=== PATIENT | female | born 1965 | race Caucasian/White ===

== ENCOUNTER 2018-01-30 04:49 | Emergency (ER) | payer OTHER ==
[2018-01-30 05:08] VITALS: TEMP 98.2; BMI 33.0
--- NOTE | 2018-01-30 05:23 | PDOC ---
History of Present Illness - General Chief Complaint: Wound Stated Complaint: RECTAL PROBLEM Time Seen by Provider: 01/30/18 05:18 History Source: Patient - History of Present Illness Initial Comments: 01/30/18 05:30 52-year-old female with history of skin abscesses complaining of right inner buttocks abscess status post I&D by yesterday. Patient was started on Augmentin and has taken 2 by mouth doses. Patient reports worsening of redness to the right buttocks and pain. Patient has a past medical history of lupus Past History - Past Medical History Allergies/Adverse Reactions: Allergies Allergy/AdvReac Type Severity Reaction Status Date / Time Sulfa (Sulfonamide Allergy Verified 01/30/18 05:06 Antibiotics) Home Medications: Ambulatory Orders Clindamycin HCl 300 mg PO TID #30 capsule 01/30/18 Escitalopram Oxalate [Lexapro -] 10 mg PO DAILY 01/30/18 - Immunization History Immunization Up to Date: No - Suicide/Smoking/Psychosocial Hx Smoking History: Current every day smoker Number of Cigarettes Smoked Daily: 18 Information on smoking cessation initiated: Yes Hx Alcohol Use: No Drug/Substance Use Hx: No Review of Systems - Review of Systems Able to Perform ROS?: Yes Is the patient limited Bermudian proficient: No Constitutional: No: Symptoms Reported, See HPI, Chills, Diaphoresis, Fever, Loss of Appetite, Malaise, Night Sweats, Weakness, Weight Stable, Unintentional Wgt. Loss, Unexplained wgt Loss, Other Integumentary: Yes: Erythema, Other (skin abscesse) *Physical Exam - Vital Signs Last Vital Signs Temp Pulse Resp BP Pulse Ox 98.2 F 134 H 14 113/86 98 01/30/18 05:06 01/30/18 05:06 01/30/18 05:06 01/30/18 05:06 01/30/18 05:06 - Physical Exam General Appearance: Yes: Appropriately Dressed Cardiovascular: positive: Regular Rhythm, Tachycardia Female Pelvic Exam: positive: other (right buttocks erythema, warm to touch and tenderness. pus drainage at I&D site) Integumentary: positive: Normal Color, Dry, Warm Neurologic: positive: Fully Oriented, Alert, Normal Mood/Affect ED Treatment Course - LABORATORY CBC & Chemistry Diagram: 01/30/18 05:47 01/30/18 05:47 Progress Note - Progress Note Progress Note: cellulitis and abscess P: cbc cmp blood culture ua Medical Decision Making - Medical Decision Making 01/30/18 07:06 patient pending IV clindamycin. patient signed out to salud Gonzalez NP *DC/Admit/Observation/Transfer Diagnosis at time of Disposition: Cellulitis and abscess of buttock - Prescriptions Prescriptions: Clindamycin HCl 300 mg PO TID #30 capsule - Referrals Referrals: Evelio Nielsen MD [Primary Care Provider] - - Patient Instructions Printed Discharge Instructions: DI for Cellulitis -- Adult Additional Instructions: take clindamycin as prescribed. apply warm compress to the area. return in 2 days for packing removal . ' return to the ER if you are having fever, worsening symptoms, streaking. - Post Discharge Activity
[2018-01-30] MEDS ORDERED: KETOROLAC TROMETHAMINE 30 MG/1 ML VIAL IVPUSH ONE (05:37)
[2018-01-30] MEDS ORDERED: morphine CARPU-JECT 2 MG/1 ML DISP.SYRIN IVPUSH ONE (05:38)
[2018-01-30] MEDS ORDERED: morphine SULFATE 4 MG/ML VIAL ONE ×2 (05:39→06:08)
[2018-01-30] MEDS ORDERED: KETOROLAC TROMETHAMINE 30 MG/1 ML VIAL ONE (05:40)
[2018-01-30 05:58] LABS: BASO % 0.7 % (0-2.0); EOS % 0.5 % (0-4.5); HEMOGLOBIN 12.7 GM/dL (10.7-15.3); LYMPH % 19.2 % (8-40); MCHC 34.4 g/dl (32.0-36.0); MEAN CELL VOLUME 87.3 fl (80-96); MEAN PLT VOLUME 8.8 fl (7.5-11.1); MONO % 7.3 % (3.8-10.2); NEUT % 72.3 % (42.8-82.8); PLATELET COUNT 219 K/MM3 (134-434); RBC 4.24 M/mm3 (3.60-5.2); RDW 13.1 % (11.6-15.6); WHITE BLOOD COUNT 11.3 K/mm3 (4.0-10.0)
[2018-01-30] MEDS ORDERED: morphine CARPU-JECT 4 MG/1 ML DISP.SYRIN IVPUSH ONE (06:05)
[2018-01-30 06:27] LABS: ALBUMIN 3.5 g/dl (3.4-5.0); ALK PHOS 87 U/L (45-117); ANION GAP 8 (8-16); BILIRUBIN,TOTAL 0.4 mg/dL (0.2-1.0); BLOOD UREA NITROGEN 13 mg/dL (7-18); CALCIUM 7.7 mg/dL (8.5-10.1); CHLORIDE 109 mmol/L (98-107); CO2 22 mmol/L (21-32); CREATININE 0.6 mg/dL (0.55-1.02); GLUCOSE,RANDOM 113 mg/dL (74-106); POTASSIUM 3.9 mmol/L (3.5-5.1); SGOT/AST 17 U/L (15-37); SGPT/ALT 20 U/L (12-78); SODIUM 139 mmol/L (136-145); TOT PROT 6.7 g/dl (6.4-8.2)
[2018-01-30] MEDS ORDERED: CLINDAMYCIN 900 MG PREMIX IVPB 900 MG/50 ML BAG IVPB ONE ×2 (07:00→07:03)
[2018-01-30 07:26] VITALS: BP 100/60; PULSE 60
== END 2018-01-30 07:12 | disposition home or self-care (01) ==
LOC: JER 04:49
DX: L03.317 Cellulitis of buttock (principal)
CPT/HCPCS: 36415; 80053; 85025; 87040; 99282-25

== ENCOUNTER 2018-01-30 20:10 | Emergency (ER) | payer OTHER ==
--- NOTE | 2018-01-30 20:20 | PDOC ---
Rapid Medical Evaluation Chief Complaint: Wound Time Seen by Provider: 01/30/18 20:20 Medical Evaluation: Allergies Allergy/AdvReac Type Severity Reaction Status Date / Time Sulfa (Sulfonamide Allergy Verified 01/30/18 05:06 Antibiotics) 01/30/18 20:20 This is a 52 year old female seen this morning with buttock abscess, I&D. Presents tonight after packing fell out, however also reports that surrounding redness is spreading. V/s notable for P 98. -To FT for further evaluation.
[2018-01-30 20:27] VITALS: BP 110/69; PULSE 98; TEMP 98.1; BMI 33.0
--- NOTE | 2018-01-30 21:07 | PDOC ---
Suture Removal/Wound Check HPI - History of Present Illness Chief Complaint: Wound Stated Complaint: CYST Time Seen by Provider: 01/30/18 20:20 History Source: Yes: Patient Exam Limitations: Yes: No Limitations Treated at: [facility] ED Date of Last ED visit: 01/30/18 - Onset of Previous Treatment Comment:: CHIEF COMPLAINT: 52 y/o afebrile female with no significant PMH c/o worsened buttock wound. HISTORY OF PRESENT ILLNESS: The patient was seen here this morning for an abscess. She had it drained and was given 1 dose of IV clinda. She was discharged with packing in place and sent with rx for clinda. She has taken 2 doses of PO clinda so far. She states when she removed bandaging this evening to do a hot compress the packing came out and she noticed the redness had worsened. She denies fever, chills, streaking and all other symptoms. Vital signs on arrival are within normal limits. REVIEW OF SYSTEMS: GENERAL/CONSTITUTIONAL: No fever/chills. No weakness. No weight change. MUSCULOSKELETAL: No joint or muscle swelling or pain. No neck or back pain. SKIN: +painful buttock wound left side. NEUROLOGIC: No headache, vertigo, loss of consciousness, or loss of sensation. PHYSICAL EXAM: GENERAL: The patient is awake, alert, and fully oriented, in no acute distress. She is very well appearing and pleasant. HEAD: Normal with no signs of trauma. EYES: Pupils equal, round and reactive to light, extraocular movements intact, sclera anicteric, conjunctiva clear. EXTREMITIES: Normal range of motion, no edema. NEUROLOGICAL: Normal speech, normal gait. SKIN: Left buttock with 14cm x 11cm area of erythema with small open incision noted at left border of the intergluteal cleft. Another area of fluctuance that is TTP is noted just lateral to the incision and it measures 3.5cm in diameter and is more erythematous than surrounding tissue. No streaking noted. Past History - Past Medical History Allergies/Adverse Reactions: Allergies Allergy/AdvReac Type Severity Reaction Status Date / Time Sulfa (Sulfonamide Allergy Verified 01/30/18 20:23 Antibiotics) Home Medications: Ambulatory Orders Clindamycin HCl 300 mg PO TID #30 capsule 01/30/18 Escitalopram Oxalate [Lexapro -] 10 mg PO DAILY 01/30/18 COPD: No Psychiatric Problems: Yes Other medical history: Lupus - Immunization History Immunization Up to Date: No - Suicide/Smoking/Psychosocial Hx Smoking History: Current every day smoker Have you smoked in the past 12 months: Yes Number of Cigarettes Smoked Daily: 20 Information on smoking cessation initiated: No Hx Alcohol Use: No Drug/Substance Use Hx: No Substance Use Type: None Medical Decision Making - Medical Decision Making A/P: 52 y/o female with abscess that was open and drained earlier today c/o that it has worsened. The patient has only had 3 doses of clinda thus far. Patient has had many of these infections in the past. She reports no fever and has no streaking. Clinda is covering staph but she has no strep coverage. Will give IM bicillin to cover for strep. Offered to attempt to I&D the new painful area but the patient refuses, stating she would like to take the antibiotics for a few more days to see if the wound improves, which I am comfortable with. I yesenia a line around the outside border of the wound. I suggested she do hot water sitz baths or hot compresses at least 3 times per day, take clinda every 6 hours until morning (at that point will be 48 hours from onset of abx) and reassess the erythema. If she develops streaking or fevers before 48 hours, patient was instructed to return to the ER immediately for admission and IV antibiotics. The patient verbalizes understanding of all instructions, has no further questions and is awaiting discharge. *DC/Admit/Observation/Transfer Diagnosis at time of Disposition: Cellulitis and abscess of buttock - Discharge Dispostion Disposition: HOME Condition at time of disposition: Good - Referrals Referrals: Evelio Nielsen MD [Primary Care Provider] - - Patient Instructions Printed Discharge Instructions: DI for Cellulitis -- Adult Additional Instructions: Discharge instructions: -Continue taking Clindamycin for infection -Sit in hot water sitz baths or use hot compresses at least 3 times per day -Monitor the wound over the next 48 hours. -If you develop a fever or streaking please return to the ER for IV antibiotics and admission - Post Discharge Activity
--- NOTE | 2018-01-30 21:09 | PDOC ---
*Physical Exam - Vital Signs Last Vital Signs Temp Pulse Resp BP Pulse Ox 98.1 F 98 H 18 110/69 100 01/30/18 20:21 01/30/18 20:21 01/30/18 20:21 01/30/18 20:21 01/30/18 20:21 Medical Decision Making - Medical Decision Making 01/30/18 21:09 agree with care from CHARLA Garcia *DC/Admit/Observation/Transfer Diagnosis at time of Disposition: Cellulitis and abscess of buttock - Discharge Dispostion Disposition: HOME Condition at time of disposition: Good - Referrals Referrals: Evelio Nielsen MD [Primary Care Provider] - - Patient Instructions Printed Discharge Instructions: DI for Cellulitis -- Adult Additional Instructions: Discharge instructions: -Continue taking Clindamycin for infection -Sit in hot water sitz baths or use hot compresses at least 3 times per day -Monitor the wound over the next 48 hours. -If you develop a fever or streaking please return to the ER for IV antibiotics and admission - Post Discharge Activity
[2018-01-30] MEDS ORDERED: PENICILLIN G BENZATHINE 1,200,000 UNIT/2 ML PFS IM ONE (21:27)
[2018-01-30] MEDS ORDERED: PENICILLIN G BENZATHINE 2,400,000 UNIT/4 ML PFS ONE (21:35)
== END 2018-01-30 22:05 | disposition home or self-care (01) ==
LOC: JER 20:10
DX: Z48.01 Encounter for change or removal of surgical wound dressing (principal)
CPT/HCPCS: 99281-25

== ENCOUNTER 2018-02-06 09:32 | Emergency (ER) | payer OTHER ==
[2018-02-06 09:38] VITALS: BP 133/80; PULSE 82; TEMP 97.7; BMI 34.9
--- NOTE | 2018-02-06 11:22 | PDOC ---
History of Present Illness - General Chief Complaint: Revisit,Wound Recheck Stated Complaint: PACKAGE REMOVAL Time Seen by Provider: 02/06/18 10:42 History Source: Patient Exam Limitations: No Limitations - History of Present Illness Initial Comments: 02/06/18 11:19 CHIEF COMPLAINT: Here for packing removal. HISTORY OF PRESENT ILLNESS: Patient is a 52-year-old female here for packing removal to abscess to buttock 02/06/18 12:55 Past History - Past Medical History Allergies/Adverse Reactions: Allergies Allergy/AdvReac Type Severity Reaction Status Date / Time Sulfa (Sulfonamide Allergy Verified 02/06/18 09:38 Antibiotics) Home Medications: Ambulatory Orders Escitalopram Oxalate [Lexapro -] 10 mg PO DAILY 01/30/18 Chlorhexidine Gluconate [Hibiclens For Decolonization -] 1 applic TP DAILY #1 bottle 02/04/18 COPD: No Psychiatric Problems: Yes - Immunization History Immunization Up to Date: No - Suicide/Smoking/Psychosocial Hx Smoking History: Current every day smoker Have you smoked in the past 12 months: Yes Number of Cigarettes Smoked Daily: 10 Information on smoking cessation initiated: No 'Breaking Loose' booklet given: 02/06/18 Hx Alcohol Use: No Drug/Substance Use Hx: No Substance Use Type: None Review of Systems - Review of Systems Constitutional: No: Symptoms Reported Integumentary: Yes: Erythema Hematologic/Lymphatic: No: Symptoms Reported All Other Systems: Reviewed and Negative *Physical Exam - Vital Signs Last Vital Signs Temp Pulse Resp BP Pulse Ox 97.7 F 82 18 133/80 100 02/06/18 09:34 02/06/18 09:34 02/06/18 09:34 02/06/18 09:34 02/06/18 09:34 - Physical Exam General Appearance: Yes: Appropriately Dressed. No: Apparent Distress Lymphatic: negative: Adenopathy Integumentary: positive: Normal Color, Dry, Erythema. negative: Swelling, Ecchymosis, Bruising Neurologic: positive: Alert, Normal Mood/Affect Medical Decision Making - Medical Decision Making 02/06/18 12:56 A/P: Patient is a pack removal to buttock, area appears to be healing well to decreased erythema with no induration. Patient to continue antibiotics, cultures showed no growth patient made aware. To follow-up with infectious disease and dermatology as needed. *DC/Admit/Observation/Transfer Diagnosis at time of Disposition: Abscess packing removal - Discharge Dispostion Disposition: HOME Condition at time of disposition: Stable Admit: No - Referrals Referrals: Evelio Nielsen MD [Primary Care Provider] - - Patient Instructions Additional Instructions: Please monitor area for any increased redness swelling or signs of infection. You may remove the dressing tomorrow please make sure to wash area thoroughly using antibacterial soap no fragrant soaps. Follow-up with dermatology. - Post Discharge Activity Forms/Work/School Notes: Back to Work
== END 2018-02-06 11:25 | disposition home or self-care (01) ==
LOC: JERFT 09:32
DX: Z48.01 Encounter for change or removal of surgical wound dressing (principal)
CPT/HCPCS: 99281-25